=== PATIENT | male | born 1955 | race Caucasian/White ===

== ENCOUNTER 2022-08-23 14:07 | Emergency (ER) | payer MEDICARE ==
[~2022-08-23] VITALS: Ht 182.9 cm; Wt 97.5 kg
[2022-08-23 14:54] VITALS: BP 124/67
[2022-08-23] MEDS ORDERED: TRIAMCINOLONE ACETONIDE 40 MG/ML 1ML VIAL IM STA (15:26)
[2022-08-23] MEDS ORDERED: KETOROLAC 30MG VIAL (30MG/ML) IM ONE (15:30)
[2022-08-23] MEDS ORDERED: PREDNISONE 10 MG TABLET PO STA (16:07)
[2022-08-23] MEDS ORDERED: IBUPROFEN 400 MG TABLET ONE (16:16)
[2022-08-23] MEDS ORDERED: CYCL10TA16 PO (16:22)
[2022-08-23] MEDS ORDERED: NAPR-1192 PO (16:22)
[2022-08-23] MEDS ORDERED: IBUPROFEN 400 MG TABLET PO ONE (16:30)
[2022-08-23] MEDS ORDERED: NAPROXEN 500 MG TABLET PO ONE (16:30)
== END 2022-08-23 16:45 | disposition home or self-care (01) ==
LOC: EDH 14:07
DX: S83.8X2A Sprain of other specified parts of left knee, initial encounter (principal); X58.XXXA Exposure to other specified factors, initial encounter; Y93.89 Activity, other specified; Y92.89 Other specified places as the place of occurrence of the external cause; Y99.8 Other external cause status
CPT/HCPCS: 99283; 73562; J7512; J1885; J3301